=== PATIENT | male | born 1990 | race Hispanic/Latino ===

== ENCOUNTER 2017-01-21 07:50 | Emergency (ER) | payer OTHER ==
[2017-01-21 08:00] VITALS: TEMP 97.9
[2017-01-21 08:11] VITALS: BMI 30.5
--- NOTE | 2017-01-21 08:26 | ED PDOC ---
Arrival/HPI - General Historian: Patient - History of Present Illness Time/Duration: Prior to Arrival Symptom Onset: Sudden Symptom Course: Unchanged Context: Home <Betzaida Darby - Last Filed: 01/21/17 12:20> <James Carloso Claire - Last Filed: 01/21/17 13:32> - General Chief Complaint: Back Pain Time Seen by Provider: 01/21/17 08:16 - History of Present Illness Narrative History of Present Illness (Text): 01/21/17 08:20 26 yo male with no significant PMH presented with right sided para-vertebral back pain. Patient states that he states that he woke up this morning and was stretching when he heard a pop and began to have severe back pain. Patient states the pain radiated throughout his back but does not radiate down his legs. He denies any numbness or tingling in his lower extremities. He states that he tried to take a shower but that did not help with pain, he also tried an ice pack but the pain was unchanged. Patient state he was able to walk to emergency department without any gait abnormalities however the pain was consistent. Patient state pain does not change with movement. He report diaphoresis, nausea and vomiting. He denies fever, weight changes, chest pain. PMD: none (Betzaida Darby) Past Medical History - Provider Review Nursing Documentation Reviewed: Yes <Betzaida Darby - Last Filed: 01/21/17 12:20> Family/Social History - Physician Review Nursing Documentation Reviewed: Yes Family/Social History: No Known Family HX <Betzaida Darby - Last Filed: 01/21/17 12:20> Allergies/Home Meds <Betzaida Darby - Last Filed: 01/21/17 12:20> <ZenadarwinRowdy Claire - Last Filed: 01/21/17 13:32> Allergies/Adverse Reactions: Allergies No Known Allergies Allergy (Verified 01/21/17 08:11) Review of Systems - Review of Systems Constitutional: Normal. absent: Fatigue, Weight Change, Fevers Eyes: Normal. absent: Vision Changes, Photophobia, Eye Pain ENT: Normal. absent: Hearing Changes, Sore Throat, Rhinorrhea, Sinus Congestion Respiratory: Normal. absent: SOB, Cough, Sputum, Wheezing Cardiovascular: Normal. absent: Chest Pain, Palpitations, Syncope Gastrointestinal: Normal, Abdominal Pain, Nausea, Vomiting. absent: Constipation, Diarrhea Genitourinary Male: Normal. absent: Dysuria, Frequency, Hematuria Musculoskeletal: Normal, Back Pain, Myalgias. absent: Neck Pain Skin: Normal. absent: Rash, Pruritis, Laceration Neurological: Normal. absent: Headache, Dizziness Endocrine: Diaphoresis Hemo/Lymphatic: Normal. absent: Easy Bleeding, Easy Bruising Psychiatric: Normal <Betzaida Darby - Last Filed: 01/21/17 12:20> Physical Exam - Systems Exam Head: Present: Atraumatic, Normocephalic Pupils: Present: PERRL Extroacular Muscles: Present: EOMI Conjunctiva: Present: Normal Mouth: Present: Moist Mucous Membranes Nose (External): Present: Atraumatic Neck: Present: Normal Range of Motion Respiratory/Chest: Present: Clear to Auscultation, Good Air Exchange. No: Respiratory Distress, Accessory Muscle Use, Wheezes, Rales, Rhonchi, Tachypneic Cardiovascular: Present: Regular Rate and Rhythm, Normal S1, S2, Tachycardic. No: Murmurs, Bradycardic Abdomen: Present: Normal Bowel Sounds. No: Tenderness, Distention, Peritoneal Signs Back: Present: Normal Inspection, Paraspinal Tenderness (right sided) Upper Extremity: Present: Normal Inspection. No: Cyanosis, Edema, Tenderness, Swelling Lower Extremity: Present: Normal Inspection, NORMAL PULSES. No: Edema, CALF TENDERNESS Neurological: Present: GCS=15, CN II-XII Intact, Speech Normal, Motor Func Grossly Intact Skin: Present: Warm, Normal Color, Diaphoretic. No: Rashes Psychiatric: Present: Alert, Oriented x 3, Normal Insight, Normal Concentration <MehnazBetzaida - Last Filed: 01/21/17 12:20> Medical Decision Making <Betzaida Darby - Last Filed: 01/21/17 12:20> <Rowdy Carlos - Last Filed: 01/21/17 13:32> ED Course and Treatment: 01/21/17 08:29 Impression: 27 yo male with no significant PMH presents with back pain Differential Diagnosis included but are not limited to: muscle strain Plan: - flexeril, toradol - Reassess and disposition Progress Notes: 01/21/17 09:08 - patient continues to complain of pain, will give morphine 01/21/17 10:15 - patient is doing well, pain improved. Lumbar spine xray was unremarkable. CT abd/pel showed 3mm stone in the right UVJ with mild hydronephrosis of the right kidney. Will do CBC, CMP. 01/21/17 11:50 - Patient is doing better. Labs are reviewed. Patient is to follow up with PMD and urologist. Discharge plan was discussed with patient, all questions were answered. (Betzaida Darby) A 26 year old male with right sided back pain. In agreement with resident note, which includes further HPI details. Patient was seen and evaluated with resident , came up with plan and treatment together. Patient initially presented with a clnical impression of lumbar strain. Then his symptoms worsened and he said the pain radiated around his side from his back. CT ordered and a kidney stone was noted. UA negative for UTI. Creatinine normal. Pain was controlled prior to discharge. He was advised to follow up with urology Dr Liz who is multifocal button generator. (Rowdy Carlos) - Lab Interpretations Lab Results: 01/21/17 08:10 01/21/17 11:05 Lab Results 01/21/17 11:05: Sodium 139, Potassium 4.0, Chloride 105, Carbon Dioxide 26, Anion Gap 12, BUN 16, Creatinine 1.1, Est GFR ( Amer) > 60, Est GFR (Non- Af Amer) > 60, Random Glucose 89, Calcium 9.3, Total Bilirubin 0.5, AST 57, ALT 69 H, Alkaline Phosphatase 59, Total Protein 7.9, Albumin 4.3, Globulin 3.7, Albumin/Globulin Ratio 1.2 01/21/17 09:29: Urine Color Yellow, Urine Appearance Clear, Urine pH 7.0, Ur Specific [place] 1.015, Urine Protein Trace H, Urine Glucose (UA) Negative, Urine Ketones Negative, Urine Blood Negative, Urine Nitrate Negative, Urine Bilirubin Negative, Urine Urobilinogen 1.0 H, Ur Leukocyte Esterase Negative, Urine RBC Negative, Urine WBC Negative 01/21/17 08:10: WBC 9.5, RBC 5.05, Hgb 14.8, Hct 44.1, MCV 87.3, MCH 29.3, MCHC 33.6, RDW 14.0, Plt Count 250, MPV 10.0, Gran % 45.6 L, Lymph % (Auto) 40.5 H, [place] % (Auto) 11.0 H, Eos % (Auto) 2.7, Baso % (Auto) 0.2, Gran # 4.32, Lymph # 3.8 H, [place] # 1.0 H, Eos # 0.3, Baso # 0.02 - RAD Interpretation Radiology Orders: 01/21/17 09:15 ABD & PELVIS W/O PO OR IV CONT [CT] Stat LS SPINE AP/LAT [RAD] Stat - Medication Orders Current Medication Orders: Discontinued Medications Cyclobenzaprine HCl (Flexeril) 10 mg PO STAT STA Stop: 01/21/17 08:17 Last Admin: 01/21/17 08:20 Dose: 10 mg Sodium Chloride (Sodium Chloride 0.9%) 1,000 mls @ 999 mls/hr IV .Q1H1M STA Stop: 01/21/17 11:25 Last Admin: 01/21/17 10:46 Dose: 999 mls/hr Ketorolac Tromethamine (Toradol) 60 mg IM STAT STA Stop: 01/21/17 08:17 Last Admin: 01/21/17 08:21 Dose: 60 mg Re-Assess: [facility] Pain Assessment Document 01/21/17 09:21 ALA (Rec: 01/21/17 10:37 ALA [id number] Pain Reassessment Is this a pain reassessment? Yes Sleep Is patient sleeping during reassessment? No Presence of Pain Presence of Pain Yes Pain Scale Used Pain Scale Used Numeric Morphine Sulfate (Morphine) 4 mg IM STAT STA Stop: 01/21/17 08:51 Last Admin: 01/21/17 09:10 Dose: 4 mg Re-Assess: [facility] Pain Assessment Document 01/21/17 10:10 ALA (Rec: 01/21/17 10:38 ALA [id number] Pain Reassessment Is this a pain reassessment? Yes Sleep Is patient sleeping during reassessment? Yes Tamsulosin HCl (Flomax) 0.4 mg PO STAT STA Stop: 01/21/17 10:26 Last Admin: 01/21/17 10:47 Dose: 0.4 mg <Mehnaz,Betzaida - Last Filed: 01/21/17 12:20> - PA / BUS INSPECTOR / Resident Statement MD/DO has reviewed & agrees with the documentation as recorded. MD/DO has examined the patient and agrees with the treatment plan. - Scribe Statement The provider has reviewed the documentation as recorded by the Scribe <Rowdy Carlos - Last Filed: 01/21/17 13:32> - Scribe Statement Amanda Green Provider Scribe Attestation: All medical record entries made by the Scribe were at my direction and personally dictated by me. I have reviewed the chart and agree that the record accurately reflects my personal performance of the history, physical exam, medical decision making, and the department course for this patient. I have also personally directed, reviewed, and agree with the discharge instructions and disposition. (Rowdy Carlos) Disposition/Present on Arrival - Present on Arrival Any Indicators Present on Arrival: No History of DVT/PE: No History of Uncontrolled Diabetes: No Urinary Catheter: No History of Decub. Ulcer: No - Disposition Have Diagnosis and Disposition been Completed?: Yes Disposition Time: 11:45 Patient Plan: Discharge <Betzaida Darby - Last Filed: 01/21/17 12:20> <Rowdy Carlos - Last Filed: 01/21/17 13:32> - Disposition Diagnosis: Nephrolithiasis Disposition: HOME/ ROUTINE Condition: IMPROVED Additional Instructions: Jh Mittal, thank you for letting us take care of you today. Your provider was Dr. Darby and Dr. Carlos. You were treated for kidney stone. The emergency medical care you received today was directed at your acute symptoms. If you were prescribed any medication, please fill it and take as directed. It may take several days for your symptoms to resolve. Return to the Emergency Department if your symptoms worsen, do not improve, or if you have any other problems. Please follow up with urologist, you have been referred to Dr. Liz's office. Follow up in 3-5 days. Please contact your doctor or call one of the physicians/clinics you have been referred to that are listed on the Patient Visit Information form that is included in your discharge packet. Bring any paperwork you were given at discharge with you along with any medications you are taking to your follow up visit. Our treatment cannot replace ongoing medical care by a primary care provider (PCP) outside of the emergency department. Thank you for allowing the [facility] team to be part of your care today. Prescriptions: Ibuprofen [Motrin] 600 mg PO Q6 PRN #15 tab PRN Reason: Pain, Moderate (4-7) oxyCODONE/Acetaminophen [Percocet 5/325 mg Tab] 1 ea PO Q8 PRN #15 tab PRN Reason: Pain, Severe (8-10) Tamsulosin HCl [Flomax] 0.4 mg PO HS #14 cap.er.24h Referrals: Everardo Liz MD [Staff Provider] - Follow up with primary PCP,NO [Primary Care Provider] - Follow up with primary
[2017-01-21] MEDS ORDERED: Morphine 4 mg/ml ISec IM STA (08:50)
[2017-01-21 09:33] LABS: URINE BILIRUBIN NEGATIVE (NEGATIVE); URINE BLOOD NEGATIVE (NEGATIVE); URINE GLUCOSE (UA) NEGATIVE (NEGATIVE); URINE KETONE NEGATIVE (NEGATIVE); URINE LEUKOCYTE ESTERASE NEGATIVE Leu/uL (NEGATIVE); URINE PROTEIN TRACE mg/dL (<30 mg/dL)
[2017-01-21 09:38] LABS: URINE APPEARANCE CLEAR (CLEAR); URINE COLOR YELLOW (YELLOW)
[2017-01-21 09:45] LABS: URINE RBC NEGATIVE /hpf (0-2); URINE WBC NEGATIVE /hpf (0-6)
--- NOTE | 2017-01-21 09:57 | CT ---
PROCEDURE: CT Abdomen and Pelvis without intravenous contrast HISTORY: back pain, r/o kidney stone COMPARISON: None. TECHNIQUE: Without contrast. Contrast Dose: Radiation dose: Total exam DLP = 1119 mGy-cm. This CT exam was performed using one or more of the following dose reduction techniques: Automated exposure control, adjustment of the mA and/or kV according to patient size, and/or use of iterative reconstruction technique. FINDINGS: LOWER THORAX: Unremarkable. LIVER: Unremarkable. No gross lesion or ductal dilatation. GALLBLADDER AND BILE DUCTS: Unremarkable. PANCREAS: Unremarkable. No gross lesion or ductal dilatation. SPLEEN: Unremarkable. ADRENALS: Unremarkable. No mass. KIDNEYS AND URETERS: There is a 3 mm stone in the right distal ureter at the level of the UVJ seen on image 174 series 2. There is mild right-sided hydronephrosis and perinephric stranding. There is a 3 mm nonobstructing stone in the lower pole of the right kidney VASCULATURE: Unremarkable. No aortic aneurysm. BOWEL: Unremarkable. No obstruction. No gross mural thickening. APPENDIX: Unremarkable. Normal appendix. PERITONEUM: Unremarkable. No free fluid. No free air. LYMPH NODES: Unremarkable. No enlarged lymph nodes. BLADDER: Unremarkable. REPRODUCTIVE: Unremarkable. BONES: No acute fracture. OTHER FINDINGS: None. IMPRESSION: 3 mm stone in the right UVJ with mild hydronephrosis of the right kidney
--- NOTE | 2017-01-21 10:00 | RAD ---
PROCEDURE: Radiographs of the Lumbar Spine. HISTORY: back pain COMPARISON: No prior. FINDINGS: BONES: Normal alignment. No listhesis. No fracture. DISC SPACES: Unremarkable. OTHER FINDINGS: None. IMPRESSION: Unremarkable radiographs of the lumbar spine.
[2017-01-21] MEDS ORDERED: Sodium Chloride 0.9% 1,000 ML IV STA (10:25)
[2017-01-21 10:44] LABS: ADD MANUAL DIFF? NO
[2017-01-21 10:47] LABS: BASO # 0.02 K/mm3 (0.0-2.0); BASO % 0.2 % (0.0-3.0); EOS # 0.3 (0.0-0.7); EOS % 2.7 % (1.5-5.0); GRAN # 4.32 (1.4-6.5); GRAN % 45.6 % (50.0-68.0); HEMATOCRIT 44.1 % (42.0-52.0); LYMPH # 3.8 (1.2-3.4); LYMPH % 40.5 % (22.0-35.0); MEAN CELL VOLUME 87.3 fL (80.0-105.0); MEAN CORPUSCULAR HEMOGLOBIN 29.3 pg (25.0-35.0); MEAN CORPUSCULAR HGB CONC 33.6 g/dl (31.0-37.0); PLATELET COUNT 250 10^3/uL (120.0-450.0); WHITE BLOOD COUNT 9.5 10^3/ul (4.5-11.0)
[2017-01-21 11:05] VITALS: BP 115/75; PULSE 68; RESP 16; O2SAT 98
[2017-01-21 11:21] LABS: ALB/GLOB RATIO 1.2 (1.1-1.8); ALKALINE PHOSPHATASE 59 U/L (38-133); ALT/SGPT 69 U/L (7-56); AST/SGOT 57 U/L (15-59); BILIRUBIN,TOTAL 0.5 mg/dL (0.2-1.3); BLOOD UREA NITROGEN 16 mg/dL (7-21); CALCIUM 9.3 mg/dL (8.4-10.5); CARBON DIOXIDE 26 mmol/L (21-33); CHLORIDE 105 mmol/L (98-107); GFR AFRICAN-AMERICAN > 60; GLUCOSE,RANDOM 89 mg/dL (70-110); SODIUM 139 mmol/L (132-148); TOTAL PROTEIN 7.9 g/dL (5.8-8.3)
== END 2017-01-21 11:57 | disposition home or self-care (01) ==
LOC: ED 07:50
DX: N20.0 Calculus of kidney (principal)
CPT/HCPCS: 72100; 74176; 80053; 81001; 85025; 96360; 96372; 99283; J1885; J2270; J7040

== ENCOUNTER 2018-05-03 19:45 | Emergency (ER) | payer OTHER ==
[2018-05-03 19:59] VITALS: BMI 29.5
--- NOTE | 2018-05-03 20:18 | ED PDOC ---
Arrival/HPI - General Chief Complaint: Groin Pain Time Seen by Provider: 05/03/18 20:01 Historian: Patient - History of Present Illness Symptom Onset: Gradual Symptom Course: Intermittent Quality: Burning Associated Symptoms (Text): 28yo male, comes to Emergency room reporting a burning pain to his left groin region, present intermittently for the past 3 months, however occurring more frequently over the past 2-3 weeks. Patient states the pain is sharp at times and worsened when he moves from a laying to sitting position. Patient also reports he feels as if there is intermittent swelling to his left testicle. Patient was evaluated by his PMD Dr. Felix and had labs including STD testing done, which were all normal. He otherwise denies any fever, chills, dysuria, hematuria, and offers no additional medical complaints. Past Medical History - Provider Review Nursing Documentation Reviewed: Yes - Renal Hx Kidney Stones: Yes - Psychiatric Hx Substance Use: No - Anesthesia Hx Anesthesia: No Family/Social History - Physician Review Nursing Documentation Reviewed: Yes Family/Social History: No Known Family HX Smoking Status: Never Smoked Hx Alcohol Use: No Hx Substance Use: No Allergies/Home Meds Allergies/Adverse Reactions: Allergies No Known Allergies Allergy (Verified 01/21/17 08:11) Review of Systems - Physician Review All systems were reviewed & negative as marked: Yes - Review of Systems Constitutional: absent: Fevers Genitourinary Male: absent: Dysuria Physical Exam - Physical Exam Narrative Physical Exam (Text): Constitutional: No acute distress. Head: Normocephalic. Atraumatic. Eyes: Normal appearance. Neck: Supple. Cardiovascular: Regular rate. GI: Soft. Nontender. Nondistended. : Uncircumcised male. No testicular tenderness or swelling. No edema. No discharge. No erythema noted. No edema noted. No hernia noted. Normal exam. Back: No CVA tenderness bilaterally. Musculoskeletal: No swelling of extremities. Skin: No rash. Neurologic: Alert, no focal deficit. Vital Signs Temp Pulse Resp BP Pulse Ox 05/03/18 20:04 99.2 F 81 18 130/78 96 Medical Decision Making ED Course and Treatment: Impression: Left sided groin pain, likely reducible hernia. Plan: -- Patient informed of presentation of hernia and considering current presentation, patient likely has a reducible hernia. Informed patient he has already had bloodwork as well as STD testing done, and further emergent evaluation is not needed at this time. Patient informed to follow up outpatient with a general surgeon for a hernia repair. - Scribe Statement The provider has reviewed the documentation as recorded by the Mckayla Jaramillo Provider Scribe Attestation: All medical record entries made by the Viriibcris were at my direction and personally dictated by me. I have reviewed the chart and agree that the record accurately reflects my personal performance of the history, physical exam, medical decision making, and the department course for this patient. I have also personally directed, reviewed, and agree with the discharge instructions and disposition. Disposition/Present on Arrival - Present on Arrival Any Indicators Present on Arrival: No History of DVT/PE: No History of Uncontrolled Diabetes: No Urinary Catheter: No History of Decub. Ulcer: No History Surgical Site Infection Following: None - Disposition Have Diagnosis and Disposition been Completed?: Yes Diagnosis: Groin pain Disposition: HOME/ ROUTINE Disposition Time: 20:18 Patient Plan: Discharge Condition: STABLE Discharge Instructions (ExitCare): Inguinal and Femoral (Groin) Hernias Referrals: Merlyn Chan MD [Staff Provider] - Follow up with primary Forms: [employer] ([place])
[2018-05-03 20:21] VITALS: RESP 18
[2018-05-03 21:05] VITALS: BP 125/78; PULSE 85; TEMP 98.7; O2SAT 100
== END 2018-05-03 20:26 | disposition home or self-care (01) ==
LOC: ED 19:45
DX: R10.30 Lower abdominal pain, unspecified (principal)